=== PATIENT | male | born 1975 | race Caucasian/White ===

== ENCOUNTER 2018-03-13 18:32 | Emergency (ER) | payer OTHER ==
[~2018-03-13] VITALS: Ht 167.6 cm; Wt 76.2 kg
[2018-03-13 19:55] VITALS: BP 128/72
--- NOTE | 2018-03-13 19:59 | PHYS DOC ---
Past History Past Medical History: No Pertinent History Past Surgical History: Knee Replacement, Other Alcohol Use: None Drug Use: None Adult General Chief Complaint Chief Complaint: LACERATION/AVULSION HPI HPI Patient is a [age] year old [sex] who presents with [] Review of Systems Review of Systems Constitutional: Denies fever or chills [] Eyes: Denies change in visual acuity, redness, or eye pain [] HENT: Denies nasal congestion or sore throat [] Respiratory: Denies cough or shortness of breath [] Cardiovascular: No additional information not addressed in HPI [] GI: Denies abdominal pain, nausea, vomiting, bloody stools or diarrhea [] : Denies dysuria or hematuria [] Musculoskeletal: Denies back pain or joint pain [] Integument: Denies rash or skin lesions [] Neurologic: Denies headache, focal weakness or sensory changes [] Endocrine: Denies polyuria or polydipsia [] All other systems were reviewed and found to be within normal limits, except as documented in this note. Allergies Allergies Allergies Coded Allergies Type Severity Reaction Last Updated Verified No Known Drug Allergies 03/13/18 No Physical Exam Physical Exam Constitutional: Well developed, well nourished, no acute distress, non-toxic appearance. [] HENT: Normocephalic, atraumatic, bilateral external ears normal, oropharynx moist, no oral exudates, nose normal. [] Eyes: PERRLA, EOMI, conjunctiva normal, no discharge. [] Neck: Normal range of motion, no tenderness, supple, no stridor. [] Cardiovascular:Heart rate regular rhythm, no murmur [] Lungs & Thorax: Bilateral breath sounds clear to auscultation [] Abdomen: Bowel sounds normal, soft, no tenderness, no masses, no pulsatile masses. [] Skin: Warm, dry, no erythema, no rash. [] Back: No tenderness, no CVA tenderness. [] Extremities: No tenderness, no cyanosis, no clubbing, ROM intact, no edema. [] Neurologic: Alert and oriented X 3, normal motor function, normal sensory function, no focal deficits noted. [] Psychologic: Affect normal, judgement normal, mood normal. [] Current Patient Data Vital Signs Vital Signs Date Time Temp Pulse Resp B/P (MAP) Pulse Ox O2 Delivery O2 Flow Rate FiO2 03/13/18 18:50 53 20 97 Room Air EKG EKG [] Radiology/Procedures Radiology/Procedures [] Course & Med Decision Making Course & Med Decision Making Pertinent Labs and Imaging studies reviewed. (See chart for details) [] Dragon Disclaimer Dragon Disclaimer This electronic medical record was generated, in whole or in part, using a voice recognition dictation system. Departure Departure: Impression: Primary Impression: Laceration Additional Impressions: Minor head injury with loss of consciousness Forehead contusion Disposition: HOME, SELF-CARE Condition: GOOD Referrals: NON,STAFF (PCP) Patient Instructions: Head Injury, Adult, Tissue Adhesive Wound Care Additional Instructions: You have suffered a minor head injury without signs of concussion. Your neurologic exam is normal, and your wound has been repaired with wound adhesive. Follow the instructions regarding aftercare. Follow up with your doctor in 2 days for wound check. Take ibuprofen every 6 hours and Tylenol every 4 hours as needed for discomfort. Return immediately to the emergency department for any neurologic complaints or signs of concussion including dizziness visual changes speech changes or worsening headaches Problem Qualifiers BRIANNA DC MD March 13, 2018 19:59
== END 2018-03-13 20:00 | disposition home or self-care (01) ==
LOC: ER 18:32
DX: S06.9X9A Unspecified intracranial injury with loss of consciousness of unspecified duration, initial encounter (principal); S01.81XA Laceration without foreign body of other part of head, initial encounter; W21.04XA Struck by golf ball, initial encounter; Y93.89 Activity, other specified; Y99.8 Other external cause status; Y92.89 Other specified places as the place of occurrence of the external cause
CPT/HCPCS: 12011; 99283